=== PATIENT | male | born 1995 | race Caucasian/White ===

== ENCOUNTER → 2017-04-11 | Outpatient (CLI) | payer OTHER ==
[~2017-04-11] MED LIST: GADAVIST IV PRN
--- NOTE | 2017-04-11 14:46 | DIAGNOSTIC IMAGING REPORT ---
BRAIN COMBO CLINICAL HISTORY: SYNCOPE mental status change COMPARISON STUDY: No previous studies for comparison. TECHNIQUE: Utilizing a 1.5 Jeanette magnet and dedicated coil, multiplanar, multiecho imaging of the brain was performed pre and postcontrast administration. IV administration of 10.5 mL of Gadavist contrast was uneventful. FINDINGS: Diffusion images are negative for an acute ischemic event. Ventricular system is midline. Signal characteristics the cerebellar as well as cerebral hemispheres are unremarkable. No abnormal postcontrast enhancement. Sella and parasellar regions are unremarkable. Internal auditory canals are symmetric. IMPRESSION: Normal study. The above report was generated using voice recognition software. It may contain grammatical, syntax or spelling errors. Electronically signed by: Yadiel Jay M.D. 04/11/2017 2:44 PM Dictated Date/Time: 04/11/2017 2:42 PM
== END | disposition home or self-care (01) ==
LOC: C.MRI 13:35
PROVIDERS: ATTEND Family Medicine
DX: R55 Syncope and collapse (principal)

== ENCOUNTER 2017-07-18 05:45 | Emergency (ER) | payer OTHER ==
[~2017-07-18] VITALS: Ht 182.9 cm; Wt 76.4 kg
[~2017-07-18 05:45] MED LIST changes: +BCTCR/30 EXT; +CLIN300C2 PO; -GADAVIST IV PRN
[2017-07-18 05:49] VITALS: TEMP 36.7; Ht 182.9 cm; Wt 76.4 kg
--- NOTE | 2017-07-18 06:15 | EMERGENCY ROOM VISIT NOTE ---
History Report prepared by Cory: Aby Mcintyre Under the Supervision of: Dr. Yaneth Crane M.D. First contact with patient: 06:01 Chief Complaint: EAR PAIN Stated Complaint: EXTREME PAIN IN THE EAR AND IT FEELS FULL History of Present Illness The patient is a 22 year old male who presents to the Emergency Room with complaints of worsening left ear pain beginning prior to arrival. He rates the pain at a 7/10. The patient states that he went to [facility] yesterday for a boil in his ear. He states that he was told to go to the emergency room if the boil became larger or more painful, which it has. He states that he was prescribed Bactroban and Clindamycin. Per family, the patient is prone to cysts in his ear but states that it has never been this bad. The patient states that he did not take any medication for pain. Source of History: patient, family Onset: prior to arrival Position: ear (left) Symptom Intensity: rated at a 7/10 Quality: other (boil in ear ) Timing: worsening Review of Systems See HPI for pertinent positives & negatives. A total of 6 systems reviewed and were otherwise negative. Past Medical & Surgical Ear cysts Family History No pertinent family history stated. 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 General: Well-appearing male, in no significant distress. HEENT: No scleral icterus, PERRLA, neck supple. Atraumatic.1 cm abscess noted in the distal portion of the external auditory canal on the left with a normal appearing TM. Some cellulitis change and swelling noted. Does have pain with movement of pinna. No mastoid tenderness. Musculoskeletal: Atraumatic, no peripheral edema. Neurologic: Patient awake alert and oriented. Skin: Warm, dry. See HEENT above. Medical Decision & Procedures Medications Administered Medications (Trade) Dose Ordered Sig/Jayde Route Start Time Stop Time Status Last Admin Dose Admin Neomycin/ Polymyxin/ Hydrocortisone (Cortisporin Otic Soln) 150 drops STK-MED ONCE .ROUTE 07/18/17 06:29 07/18/17 06:30 DC 07/18/17 06:29 150 DROPS Ibuprofen (Motrin Tab) 600 mg NOW STAT PO 07/18/17 06:37 07/18/17 06:38 DC 07/18/17 06:50 600 MG Procedure Incision & Drainage Indication: Abscess. Location: left external auditory canal Verbal consent was obtained after the risks and benefits were explained, including but not limited to bleeding, scarring, infection, pain, and bone/joint /nerve damage. At this time, the risks of the procedure are less than the risks of NOT performing the procedure. A time out was taken and the correct patient and site identified. The skin was prepped with betadine and a sterile field set. The abscess cavity was entered with a 18 g needle and purulent material expressed. Cleansed with saline. The wound was explored for foreign bodies and none found. An ear wick and cortisporin drops were administered. Detailed wound care instructions and signs and symptoms of worsening infection reviewed with the patient. No complications and the patient tolerated the procedure well. ED Course 0612: Past medical records reviewed. The patient was evaluated in room B10. A complete history and physical examination was performed. 0629: Ordered Neomycin/Polymyxin/Hydrocortisone 150 drops .ROUTE. 0637: Ordered Ibuprofen 600 mg PO. 0640: Upon reevaluation, the patient appeared to have improvement of his symptoms. He verbalized agreement of the treatment plan. He was discharged home. Medical Decision The patient is a 22 year old male who presents to the ED with complaints of left ear pain. Differentials include abscess, cellulitis, otitis media, otitis externa, and mastoiditis. This pt was evaluated and appeared to be in some discomfort. Pt started po clindamycin earlier today. An I&D was performed of L ear canal, an ear wick inserted and cortosporin drops placed. Pt was given po ibuprofen for pain. Pt was asked to continue meds as directed. He will f/u with ENT [facility] with CM assist if needed for appt. He will return to the ED for worsening of symptoms or any medical concerns. Medication Reconcilliation Current Medication List: was personally reviewed by me Blood Pressure Screening Patient's blood pressure: Elevated blood pressure Blood pressure disposition: Elevated BP felt to be situational Impression Primary Impression: Abscess of left ear canal Scribe Attestation The scribe's documentation has been prepared under my direction and personally reviewed by me in its entirety. I confirm that the note above accurately reflects all work, treatment, procedures, and medical decision making performed by me. Departure Information Dispostion Home / Self-Care Referrals No Doctor, Assigned (PCP) Forms HOME CARE DOCUMENTATION FORM, IMPORTANT VISIT INFORMATION, WORK / SCHOOL INSTRUCTIONS Patient Instructions [facility] Additional Instructions Diagnosis: Abscess of the left ear canal Continue clindamycin as previously prescribed. Cortisporin otic to the left ear, 5 drops twice daily. You have an ear wick in the left canal. Discard the wick when it falls out. Continue drops for 7 days. Ibuprofen 600 mg every 6 hours as needed for pain with food. Warm compresses 3-4 times daily for the next 2 days. Follow-up with ear nose and throat as soon as possible. Return to the emergency department if you have difficulty obtaining an appointment and need reevaluation. Consider dermatology consultation for recurrent abscesses. Return to the emergency department for worsening of symptoms or any medical concerns.
[2017-07-18] MEDS ORDERED: NEOMYCIN/POLYMYX/HYDROCORT OT SOLN 10 ML BTL ONE (06:29)
[2017-07-18] MEDS ORDERED: IBUPROFEN 600 MG TAB PO STA (06:37)
[2017-07-18 06:52] VITALS: BP 142/81; PULSE 62; O2SAT 96
== END 2017-07-18 06:53 | disposition home or self-care (01) ==
LOC: C.EDB 05:46
DX: H60.02 Abscess of left external ear (principal)